=== PATIENT | female | born 1965 | race Caucasian/White ===

== ENCOUNTER → 2016-10-01 | Outpatient (CLI) | payer BC | LOC: RAD 09:00 | DX: Z12.31 Encounter for screening mammogram for malignant neoplasm of breast (principal) | CPT/HCPCS: G0202 ==

== ENCOUNTER → 2018-09-24 | Outpatient (CLI) | payer BC | LOC: MAMMO 09-23 09:15 | DX: Z12.31 Encounter for screening mammogram for malignant neoplasm of breast (principal) ==

== ENCOUNTER → 2019-02-11 | Outpatient (CLI) | payer BC | LOC: RAD 13:45 | DX: M25.531 Pain in right wrist (principal) ==

== ENCOUNTER 2019-03-11 09:45 | Outpatient (RCR) | payer BC | END 2019-03-11 10:15 | disposition still patient (30) | LOC: OT 09:45 | DX: M25.531 Pain in right wrist (principal) ==

== ENCOUNTER → 2019-11-08 | Outpatient (CLI) | payer BC | LOC: MAMMO 15:02 | DX: Z12.31 Encounter for screening mammogram for malignant neoplasm of breast (principal) ==

== ENCOUNTER → 2021-10-07 | Outpatient (CLI) | payer BC | LOC: MAMMO 10:30 | DX: Z12.31 Encounter for screening mammogram for malignant neoplasm of breast (principal) ==

== ENCOUNTER → 2021-11-21 | Day surgery (SDC) | payer BC | END | disposition home or self-care (01) | LOC: MSO 07:58 | DX: Z12.11 Encounter for screening for malignant neoplasm of colon (principal); D12.2 Benign neoplasm of ascending colon; Z86.16 Personal history of COVID-19; Z28.310 Unvaccinated for COVID-19; Z28.9 Immunization not carried out for unspecified reason | CPT/HCPCS: 00811; J2704; J7120 ==

== ENCOUNTER → 2022-07-18 | Outpatient (CLI) | payer BC | LOC: LAB 10:40 | DX: J06.9 Acute upper respiratory infection, unspecified (principal); Z20.822 Contact with and (suspected) exposure to COVID-19 ==